=== PATIENT | male | born 1995 | race Hispanic/Latino ===

== ENCOUNTER 2024-02-15 17:36 | Inpatient (IN) | payer OTHER ==
[2024-02-15] MEDS ORDERED: Labetalol HCl 100 MG/20 ML VIAL ONE (18:47)
[2024-02-15 18:52] LABS: #Basophils 0.06 10x3/uL (0.0-0.2); %Basophils 0.6 % (0.0-1.0); %Eosinophils 1.9 % (0.0-10.0); %Lymphocytes 17.3 % (21.0-51.0); %Monocytes 10.1 % (0.0-10.0); %Neutrophils 69.5 % (42.0-75.0); Hematocrit 48.5 % (42.0-52.0); Hemoglobin 15.6 g/dL (14.0-18.0); Mean Corpuscular HGB CONC 32.2 g/dL (32.0-36.0); Mean Corpuscular Hemoglobin 28.1 pg (27.0-31.0); Mean Corpuscular Volume 87.4 fL (78.0-98.0); Mean Platelet Volume 9.6 fL (7.4-10.4); Platelet Count 245 10x3/uL (130-400); RBC Distribution Width 14.2 % (11.5-14.5); Red Blood Cell (RBC) Count 5.55 mill/uL (4.70-6.10)
[2024-02-15 19:09] LABS: ALT (SGPT) 48 U/L (8-55); AST (SGOT) 44 U/L (5-34); Albumin 4.2 g/dL (3.5-5.0); Alkaline Phosphatase 92 U/L (40-110); Anion Gap 13 mmol/L (10-20); BUN (Urea Nitrogen) 17 mg/dL (8.9-20.6); Bilirubin, Total 0.8 mg/dL (0.2-1.2); CK (CPK) 1004 U/L (30-200); Calc. Creatinine Clearance 0 mL/min (70-130); Calcium 9.4 mg/dL (7.8-10.44); Carbon Dioxide 26 mmol/L (22-29); Chloride 105 mmol/L (98-107); Estimated GFR 115; Globulin 3.7 g/dL (2.4-3.5); Glucose 98 mg/dL (70-105); Potassium 3.7 mmol/L (3.5-5.1); Protein, Total 7.9 g/dL (6.0-8.3); Sodium 140 mmol/L (136-145)
[2024-02-15 19:14] LABS: PTT 28.1 sec (22.9-36.1); Prothrombin Time 13.3 sec (12.0-14.7)
[2024-02-15 19:16] LABS: Troponin I 0.015 ng/mL (< 0.028)
[2024-02-15] MEDS ORDERED: niCARdipine 25 MG/10 ML SDV ONE (20:51)
[2024-02-15] MEDS ORDERED: Sodium Chloride 0.9% 250 ML 250 ML ONE (20:51)
[2024-02-15] MEDS ORDERED: Labetalol HCl 100 MG/20 ML VIAL SLOW IVP PRN (21:51)
[2024-02-15] MEDS ORDERED: Acetaminophen 325 MG TAB PO PRN (22:52)
[2024-02-15] MEDS ORDERED: Ondansetron ODT 4 MG TAB PO PRN (22:52)
[2024-02-15 22:53] VITALS: BMI 45.1
[2024-02-15] MEDS: Amlodipine 10 MG TAB PO SCH (23:30)
[2024-02-15] MEDS: Lisinopril 10 MG TAB PO SCH (23:31)
[2024-02-15] MEDS: niCARdipine 25 MG in Sodium Chloride 0.9% 250 ML 250 ML IVPB SCH (23:31)
[2024-02-16] MEDS: Labetalol HCl 100 MG/20 ML VIAL SLOW IVP PRN (00:02)
[2024-02-16] MEDS: hydrALAZINE 20 MG/ML VIAL SLOW IVP PRN (00:33)
[2024-02-16 06:07] LABS: Amphetamine Not Detected (NotDetected); Barbiturates Screen Not Detected (NotDetected); Benzodiazepine Screen Not Detected (NotDetected); Cocaine Metabolite Screen Not Detected (NotDetected); Methadone Not Detected (NotDetected); Methamphetamine Not Detected (NotDetected); Opiate Screen Not Detected (NotDetected); Oxycodone Screen Not Detected (NotDetected); Phencyclidine (PCP) Not Detected (NotDetected); THC/Cannabinoid Screen Detected (NotDetected); Tricyclic Screen Not Detected (NotDetected)
[2024-02-16] MEDS: Lisinopril 10 MG TAB PO SCH (08:19)
[2024-02-16] MEDS: Amlodipine 10 MG TAB PO SCH (08:20)
[2024-02-16 11:41] LABS: Anion Gap 14 mmol/L (10-20); BUN (Urea Nitrogen) 13 mg/dL (8.9-20.6); CK (CPK) 649 U/L (30-200); Calc. Creatinine Clearance 304 mL/min (70-130); Calcium 9.4 mg/dL (7.8-10.44); Carbon Dioxide 21 mmol/L (22-29); Cardiac Risk 4.2 (Less than 4.5); Chloride 109 mmol/L (98-107); Cholesterol 142 mg/dl (< 200 Desired); Estimated GFR 127; Glucose 106 mg/dL (70-105); HDL Cholesterol 34 mg/dL (>60 Neg Risk); LDL Cholesterol, Calculated 86 mg/dL; Potassium 3.6 mmol/L (3.5-5.1); Sodium 140 mmol/L (136-145); Triglycerides 109 mg/dL (Less than 150)
[2024-02-16 11:42] LABS: #Basophils 0.08 10x3/uL (0.0-0.2); %Basophils 0.6 % (0.0-1.0); %Lymphocytes 11.3 % (21.0-51.0); %Monocytes 8.4 % (0.0-10.0); %Neutrophils 77.1 % (42.0-75.0); Hematocrit 48.5 % (42.0-52.0); Hemoglobin 15.5 g/dL (14.0-18.0); Mean Corpuscular Hemoglobin 28.7 pg (27.0-31.0); Mean Corpuscular Volume 89.6 fL (78.0-98.0); Platelet Count 250 10x3/uL (130-400); RBC Distribution Width 14.4 % (11.5-14.5); Red Blood Cell (RBC) Count 5.41 mill/uL (4.70-6.10)
[2024-02-16 11:45] LABS: Hemoglobin A1c 5.4 % (4.0-6.0)
[2024-02-16 11:46] LABS: Troponin I 0.022 ng/mL (< 0.028)
[2024-02-16 11:51] LABS: Magnesium 2.1 mg/dL (1.6-2.6); Phosphorus 3.7 mg/dL (2.3-4.7)
[2024-02-16] MEDS: Lisinopril 5 MG TAB PO SCH (18:47)
[2024-02-17] MEDS: Amlodipine 10 MG TAB PO SCH (07:43)
[2024-02-17] MEDS: Lisinopril 20 MG TAB PO SCH ×2 (07:43→14:14)
[2024-02-17] MEDS ORDERED: Lisinopril 10 MG TAB PO SCH (09:00)
[2024-02-17] MEDS: Hydrochlorothiazide 25 MG TAB PO SCH (09:39)
[2024-02-17] MEDS: predniSONE 20 MG TAB PO SCH (14:14)
[2024-02-17] MEDS: valACYclovir 500 MG TAB PO SCH ×2 (14:14→21:47)
[2024-02-18 07:54] LABS: #Basophils 0.04 10x3/uL (0.0-0.2); %Basophils 0.3 % (0.0-1.0); %Eosinophils 0.5 % (0.0-10.0); %Lymphocytes 13.3 % (21.0-51.0); %Monocytes 9.2 % (0.0-10.0); %Neutrophils 75.9 % (42.0-75.0); Hematocrit 48.3 % (42.0-52.0); Mean Corpuscular HGB CONC 33.1 g/dL (32.0-36.0); Mean Corpuscular Volume 84.4 fL (78.0-98.0); Mean Platelet Volume 9.6 fL (7.4-10.4); Platelet Count 272 10x3/uL (130-400); RBC Distribution Width 14.5 % (11.5-14.5); Red Blood Cell (RBC) Count 5.72 mill/uL (4.70-6.10)
[2024-02-18 08:20] LABS: ALT (SGPT) 34 U/L (8-55); AST (SGOT) 19 U/L (5-34); Albumin 3.8 g/dL (3.5-5.0); Alkaline Phosphatase 74 U/L (40-110); Anion Gap 15 mmol/L (10-20); BUN (Urea Nitrogen) 18 mg/dL (8.9-20.6); Bilirubin, Total 0.9 mg/dL (0.2-1.2); Calc. Creatinine Clearance 246 mL/min (70-130); Calcium 9.7 mg/dL (7.8-10.44); Carbon Dioxide 21 mmol/L (22-29); Chloride 105 mmol/L (98-107); Estimated GFR 119; Globulin 3.4 g/dL (2.4-3.5); Glucose 97 mg/dL (70-105); Potassium 3.7 mmol/L (3.5-5.1); Protein, Total 7.2 g/dL (6.0-8.3); Sodium 137 mmol/L (136-145)
[2024-02-18] MEDS: Lisinopril 20 MG TAB PO SCH (09:25)
[2024-02-18] MEDS: predniSONE 20 MG TAB PO SCH (09:26)
[2024-02-18 16:26] VITALS: BP 137/89; TEMP 98.3
[2024-02-21 11:32] LABS: ANA Symphony (Qualitative) Negative (Negative); ANA Symphony (Quantitative) 0.2 Ratio (< 0.7 Negative); Jo-1 IgG Antibody Less than 0.3 EliAU/mL (<7 Negative); dsDNA IgG Antibody 2.1 IU/mL (<10 Negative)
[2024-02-22 19:13] LABS: Metanephrine,Plasma <25.0 pg/mL (0.0-88.0); Normetanephrine,Pl 143.7 pg/mL (0.0-210.1)
== END 2024-02-18 17:50 | disposition home or self-care (01) | DRG 305 ==
LOC: ERS 17:36 → CCU 21:47 → MSONC 02-16 11:48 → OBSVTOIN 02-16 12:00
PROVIDERS: ADMIT Family Medicine; ATTEND Family Medicine
DX: I16.1 Hypertensive emergency (principal); Z68.42 Body mass index [BMI] 45.0-49.9, adult; M60.9 Myositis, unspecified; M62.81 Muscle weakness (generalized); G51.0 Bell's palsy; I16.0 Hypertensive urgency; Z79.899 Other long term (current) drug therapy; Z82.49 Family history of ischemic heart disease and other diseases of the circulatory system; E66.01 Morbid (severe) obesity due to excess calories
CPT/HCPCS: 36415; 70450; 70551; 72141; 76770; 80048; 80053; 80061; 80306; 82088; 82550; 83036; 83735; 83835; 84100; 84244; 84443; 84484; 85025; 85610; 85730; 86038; 86225; 86235; 93005; 93976; 96374; 96375; 96376; G0378; J0360; J7050; J7512